=== PATIENT | female | born 1970 | race Caucasian/White ===

== ENCOUNTER → 2025-04-17 | Outpatient (CLI) | payer OTHER, SELFPAY ==
--- NOTE | 2025-04-17 15:00 | XR_ITS ---
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
== END | disposition home or self-care (01) ==
LOC: CDIM 15:55
PROVIDERS: PCP Internal Medicine; Referring Provider Internal Medicine; Visit Provider Internal Medicine
DX: E04.1 Nontoxic single thyroid nodule (principal)
CPT/HCPCS: 76536